=== PATIENT | male | born 1960 | race Caucasian/White ===

== ENCOUNTER 2016-08-11 11:54 | Emergency (ER) | payer OTHER ==
[~2016-08-11 11:54] MED LIST: Sodium Chloride 0.9% 1,000 ML BAG ONE; Sodium Chloride 0.9% 100 ML BAG ONE
[2016-08-11] MEDS ORDERED: Ketorolac Tromethamine 30 MG/ML VIAL ONE (12:33)
[2016-08-11] MEDS ORDERED: Ondansetron HCl/PF 4 MG/2 ML Vial ONE (12:33)
[2016-08-11 12:54] LABS: #Basophils 0.1 thou/uL (0.0-0.2); #Lymphocytes 0.9 thou/uL (1.20-3.40); #Monocytes 0.7 thou/uL (0.11-0.59); #Neutrophils 15.9 thou/uL (1.40-6.50); %Basophils 0.3 % (0.0-1.0); %Lymphocytes 5.2 % (21.0-51.0); %Monocytes 4.1 % (0.0-10.0); %Neutrophils 90.4 % (42.0-75.0); Hemoglobin 13.7 g/dL (14.0-18.0); Mean Corpuscular HGB CONC 32.8 g/dL (32.0-36.0); Mean Corpuscular Hemoglobin 25.2 pg (27.0-31.0); Mean Corpuscular Volume 76.9 fl (80.0-94.0); Mean Platelet Volume 8.7 fL (7.4-10.4); Platelet Count 385 thou/uL (130-400); RBC Distribution Width 16.7 % (11.5-14.5); Red Blood Cell (RBC) Count 5.42 mill/uL (4.70-6.10); White Blood Cell (WBC) Count 17.6 thou/uL (4.8-10.8)
[2016-08-11 13:02] LABS: Prothrombin Time 13.4 SEC (12.0-14.7)
[2016-08-11 13:04] LABS: PTT 22.4 SEC (22.9-36.1)
[2016-08-11 13:11] LABS: Acetaminophen Less than 3.0 mcg/mL (10.0-30.0); Alcohol Less than 10 mg/dL (Less than 10); Salicylate Less than 5.0 mg/dL (15.0-30.0)
[2016-08-11 13:20] LABS: CKMB 1.2 ng/mL (0-6.6); Troponin I 0.016 ng/mL (< 0.028)
[2016-08-11 14:02] LABS: Amphetamine Not Detected (NotDetected); Barbiturates Screen Not Detected (NotDetected); Benzodiazepine Screen Detected (NotDetected); Cocaine Metabolite Screen Not Detected (NotDetected); Medtox Control Line Valid? VALID (VALID); Methadone Not Detected (NotDetected); Methamphetamine Not Detected (NotDetected); Opiate Screen Not Detected (NotDetected); Oxycodone Screen Not Detected (NotDetected); Phencyclidine (PCP) Not Detected (NotDetected); THC/Cannabinoid Screen Not Detected (NotDetected); Tricyclic Screen Not Detected (NotDetected)
[2016-08-11] MEDS ORDERED: cefTRIAXone\\ROCEPHIN 1 GM VIAL ONE (14:07)
[2016-08-11] MEDS ORDERED: Azithromycin 250 MG TAB ONE (14:07)
[2016-08-11 14:12] LABS: ALT (SGPT) 11 U/L (0-55); AST (SGOT) 14 U/L (5-34); Albumin 4.4 g/dL (3.5-5.0); Alkaline Phosphatase 158 U/L (40-150); Anion Gap 23 mmol/L (10-20); BUN (Urea Nitrogen) 13 mg/dL (8.4-25.7); Bilirubin, Total 0.3 mg/dL (0.2-1.2); CK (CPK) 84 U/L (30-200); Calc. Creatinine Clearance 0 mL/min (70-130); Calcium 9.4 mg/dL (7.8-10.44); Carbon Dioxide 13 mmol/L (22-29); Chloride 109 mmol/L (98-107); Estimated GFR-MDRD Greater than 90; Glucose 125 mg/dL (70-105); Potassium 4.1 mmol/L (3.5-5.1); Protein, Total 7.4 g/dL (6.0-8.3); Sodium 141 mmol/L (136-145)
[2016-08-11 14:26] LABS: Clarity Clear (Clear); Leukocyte Negative (Negative); Nitrite Negative (Negative); Specific Gravity, Urine 1.024 (1.002-1.036); pH, Urine 5.5 (5.0-9.0)
[2016-08-11 14:27] LABS: Bacteria/HPF Rare-Few HPF (None Seen); Bilirubin Negative (Negative); Blood, Urine Negative (Negative); Glucose, Urine (Dipstick) Negative (Negative); Protein, Urine (Dipstick) 100 mg/dL (Neg-Trace); RBC/HPF 0-3 HPF (0-3); Squamous Epithelial 0-3 HPF (0-3); Urobilinogen 0.2 mg/dL (0.2-1.0); WBC/HPF 0-3 HPF (0-3)
--- NOTE | 2016-08-11 14:41 | RAD ---
PORTABLE CHEST: History: Syncope. FINDINGS: Heart size and mediastinum are within normal limits. Lungs are clear of any definitive infiltrative process. There are some questionable changes within the left base. Clinical correlate is recommen ded. IMPRESSION: Suggestion of perhaps some minimal interstitial change in the left lung base. Clinical correlation with findings that would suggest a developing infiltrate in this area. POS: [facility]
--- NOTE | 2016-08-11 15:18 | CT ---
BRAIN CT WITHOUT IV CONTRAST: History: 56-year-old male with syncope with loss of consciousness, multiple episodes. FINDINGS: There is a left parietal scalp hematoma. Minimal motion artifact. No focal mass or midline shift. No intra or extraaxial hemorrhage. No focal mass or midline shift. No intra or extraaxial hemorrh age. Sinuses and mastoids are clear. IMPRESSION: No acute intracranial process. No mass or bleed. POS: [facility]
== END 2016-08-11 14:35 | disposition short-term general hospital (02) ==
LOC: MADERS 11:54
DX: J18.9 Pneumonia, unspecified organism (principal); J44.9 Chronic obstructive pulmonary disease, unspecified; R55 Syncope and collapse; K21.9 Gastro-esophageal reflux disease without esophagitis; F17.210 Nicotine dependence, cigarettes, uncomplicated; Z79.891 Long term (current) use of opiate analgesic; Z79.899 Other long term (current) drug therapy
CPT/HCPCS: 70450; 71010; 80053; 80306; 80307; 81003; 81015; 82550; 82553; 83036; 83605; 83880; 84443; 84484; 85025; 85610; 85730; 86140; 87040; 87086; 93005; 94760; 96361; 96365; 96375; J0696; J1885; J2405; J7050